=== PATIENT | male | born 1985 | race Two or more races ===

== ENCOUNTER 2020-12-27 09:30 | Inpatient (IN) | payer OTHER ==
[~2020-12-27] VITALS: Ht 162.6 cm; Wt 73.5 kg
[2020-12-27] MEDS ORDERED: ACETAMINOPHEN 500 MG TABLET PO ONE (10:30)
[2020-12-27 11:05] LABS: COVID AG,FIA SOURCE NASOPHARYNGEAL
[2020-12-27] MEDS ORDERED: MAGNESIUM HYDROXIDE SUSPENSION 30 ML UDCUP PO PRN (12:30)
[2020-12-27] MEDS ORDERED: BISACODYL 10 MG RECTAL RECTAL SUPPOSITORY PR PRN (12:30)
[2020-12-27] MEDS ORDERED: ONDANSETRON HCL 4 MG/2 ML VIAL IVP PRN (12:30)
[2020-12-27] MEDS ORDERED: 0.9% SODIUM CHLORIDE 10 ML SYRINGE IVP PRN (12:30)
[2020-12-27] MEDS ORDERED: ACETAMINOPHEN 325 MG TABLET PO PRN ×2 (12:30)
[2020-12-27] MEDS: ASCORBIC ACID 500 MG TABLET PO SCH (12:45)
[2020-12-27] MEDS: ZINC SULFATE 220 MG CAPSULE PO SCH (12:45)
[2020-12-27] MEDS: FAMOTIDINE 20 MG TABLET PO SCH ×2 (12:45→20:40)
[2020-12-27 12:59] LABS: BASOPHILS % (AUTO) 0.4 % (0.0-2.0); EOSINOPHILS % (AUTO) 0.1 % (1.0-6.0); HEMATOCRIT 45.3 % (41-53); HEMOGLOBIN 15.8 g/dL (13.5-17.5); LYMPHOCYTES # (AUTO) 1.2 K/uL (1.0-4.8); LYMPHOCYTES % (AUTO) 34.7 % (22.0-44.0); MEAN CORPUSCULAR HEMOGLOBIN 31.2 pg (26.0-34.0); MEAN CORPUSCULAR HGB CONC 34.8 G/dL (31.0-37.0); MEAN CORPUSCULAR VOLUME 90 fL (80-100); MONOCYTES # (AUTO) 0.4 K/uL (0.1-1.0); MONOCYTES % (AUTO) 10.8 % (2.0-9.0); NEUTROPHILS # (AUTO) 1.9 K/uL (1.8-7.7); PLATELET COUNT (AUTO) 167 K/uL (150-450); RED BLOOD CELL COUNT(AUTO) 5.06 MIL/uL (4.50-5.90); RED CELL DISTRIBUTION WIDTH 12.7 % (11.5-14.5)
[2020-12-27 13:20] LABS: ALANINE AMINOTRANSFERASE 67 U/L (12-78); ALBUMIN 4.2 g/dL (3.4-5.0); ALKALINE PHOSPHATASE 101 U/L (46-116); ANION GAP 9 mmol/L (8-16); ASPARTATE AMINOTRANSFERASE 34 U/L (15-37); BILIRUBIN,TOTAL 0.9 mg/dL (0.1-1.0); CALCIUM, TOTAL 8.6 mg/dL (8.8-10.5); CARBON DIOXIDE 26 mmol/L (22-29); CHLORIDE 101 mmol/L (98-107); GLOMERULAR FILTR. RATE CALC > 60 mL/min (>60); GLUCOSE,RANDOM 111 mg/dL (70-110); LIPASE 197 U/L (73-393); POTASSIUM 4.1 mmol/L (3.5-5.1); SODIUM SERUM 136 mmol/L (136-145); TOTAL PROTEIN, SERUM 7.6 g/dL (6.4-8.2); UREA NITROGEN, BLOOD 16 mg/dL (7-18)
[2020-12-27 16:41] VITALS: BP 115/78
[2020-12-27 18:17] VITALS: BP 115/78
[2020-12-27] MEDS ORDERED: HydrALAZINE HCL 25 MG TABLET PO PRN (18:45)
[2020-12-27 19:35] VITALS: BP 101/70
[2020-12-28 04:46] VITALS: BP 100/62
[2020-12-28 07:45] LABS: APPEARANCE,URINE CLEAR (CLEAR); BILIRUBIN,URINE NEGATIVE (NEGATIVE); GLUCOSE, URINE (UA) NEGATIVE (NEGATIVE); KETONES,URINE TRACE mg/dL (NEGATIVE); LEUKOCYTE ESTERASE ,URINE NEGATIVE (NEGATIVE); NITRATE,URINE NEGATIVE (NEGATIVE); OCCULT BLOOD,URINE NEGATIVE (NEGATIVE); PH,URINE 6.5 (5.0-8.0); PROTEIN,URINE NEGATIVE (NEGATIVE)
[2020-12-28 07:55] VITALS: BP 106/66
[2020-12-28 08:38] LABS: BACTERIA,URINE None Seen /HPF (None Seen); RBC,URINE None Seen /HPF (0-2); WBC,URINE None Seen /HPF (0-5)
[2020-12-28] MEDS: FAMOTIDINE 20 MG TABLET PO SCH ×2 (09:08→19:43)
[2020-12-28] MEDS: ASCORBIC ACID 500 MG TABLET PO SCH (09:08)
[2020-12-28] MEDS: ZINC SULFATE 220 MG CAPSULE PO SCH (09:08)
[2020-12-28 19:30] VITALS: BP 107/65
[2020-12-29 03:30] VITALS: BP 102/66
[2020-12-29 07:54] VITALS: BP 105/61
[2020-12-29] MEDS: FAMOTIDINE 20 MG TABLET PO SCH (09:14)
[2020-12-29] MEDS: ASCORBIC ACID 500 MG TABLET PO SCH (09:15)
[2020-12-29] MEDS: ZINC SULFATE 220 MG CAPSULE PO SCH (09:15)
== END 2020-12-29 20:02 | DRG 177 ==
LOC: EMS 09:30 → 6S 12:27
PROVIDERS: ADMIT Internal Medicine; ATTEND Internal Medicine
DX: U07.1 COVID-19 (principal); J12.82 Pneumonia due to coronavirus disease 2019
CPT/HCPCS: 71045; 80053; 81001; 83690; 84484; 85025; 87426; 93005; 99285; 36415-L1; 36415-TC